=== PATIENT | male | born 1970 | race Two or more races ===

== ENCOUNTER 2021-01-23 13:11 | Emergency (ER) | payer OTHER ==
[~2021-01-23] VITALS: Ht 180.3 cm; Wt 145.1 kg
[2021-01-23] MEDS ORDERED: AVAPRO300 MG PO (13:22)
[2021-01-23] MEDS ORDERED: ADULT LOW DOSE81 M1 PO (13:23)
[2021-01-23] MEDS ORDERED: ISOSORBIDE DINI30 MG PO (13:23)
[2021-01-23] MEDS ORDERED: LASIX20 MG PO (13:23)
[2021-01-23] MEDS ORDERED: METFORMIN HCL1000 M2 PO (13:24)
[2021-01-23] MEDS ORDERED: VISTARIL50 MG PO (13:45)
== END 2021-01-23 17:55 | disposition home or self-care (01) ==
LOC: ER 13:11
DX: R06.02 Shortness of breath (principal)